=== PATIENT | female | born 1970 | race Caucasian/White ===

== ENCOUNTER 2024-09-22 20:07 | Inpatient (IN) | payer OTHER ==
[2024-09-22 22:17] VITALS: BMI 18.6
[2024-09-22] MEDS ORDERED: chlordiazePOXIDE HCL 25 MG CAPSULE PO PRN (22:27)
[2024-09-22] MEDS ORDERED: LOPERAMIDE HCL 2 MG CAPSULE PO PRN (22:38)
[2024-09-22] MEDS ORDERED: BENZONATATE 200 MG CAPSULE PO PRN (22:38)
[2024-09-22] MEDS ORDERED: BISMUTH SUBSALICYLATE 524 MG/30 ML PO PRN (22:38)
[2024-09-22] MEDS ORDERED: POLYETHYLENE GLYCOL (HEALTHYLAX) 3350 17 GM PACKET PO PRN (22:38)
[2024-09-22] MEDS ORDERED: DICYCLOMINE HCL 10 MG CAPSULE PO PRN (22:38)
[2024-09-22] MEDS ORDERED: IBUPROFEN 400 MG TABLET (FP) PO PRN (22:38)
[2024-09-22] MEDS ORDERED: ACETAMINOPHEN 325 MG TABLET (FP) PO PRN (22:38)
[2024-09-22] MEDS ORDERED: ONDANSETRON *ODT* 4 MG TABLET SL PRN (22:38)
[2024-09-22] MEDS ORDERED: MAGNESIUM HYDROX 2400MG/30ML ORAL SUSPENSION 30 ML CUP PO PRN (22:38)
[2024-09-22] MEDS ORDERED: guaiFENesin 600 MG TABLET.ER (FP) PO PRN (22:38)
[2024-09-22] MEDS ORDERED: MAG HYDROX/AL HYDROX/SIMETH 30 ML UNIT-DOSE CUP PO PRN (22:38)
[2024-09-22] MEDS ORDERED: hydrOXYzine PAMOATE 25 MG CAPSULE (FP) PO PRN (22:38)
[2024-09-22] MEDS ORDERED: BENZOCAINE/MENTHOL (CHLORASEPTIC ) LOZENGE MM PRN (22:38)
[2024-09-22] MEDS ORDERED: NICOTINE POLACRILEX 2 MG GUM BUC PRN (22:40)
[2024-09-22] MEDS ORDERED: chlordiazePOXIDE HCL 25 MG CAPSULE ONE (23:56)
[2024-09-22] MEDS ORDERED: levETIRAcetam 500 MG TABLET (FP) PO ONE (23:56)
[2024-09-22] MEDS: levETIRAcetam 500 MG TABLET (FP) PO SCH (23:57)
[2024-09-22] MEDS: chlordiazePOXIDE HCL 25 MG CAPSULE PO SCH (23:57)
[2024-09-23] MEDS ORDERED: chlordiazePOXIDE HCL 25 MG CAPSULE ONE (04:07)
[2024-09-23] MEDS: PRENATAL VITAMINS W/ FOLIC ACID TABLET (FP) PO SCH (10:37)
[2024-09-23] MEDS: FLU VACCINE (FLULAVAL) PF 45 MCG/0.5 ML SYRINGE 2024-2025 IM ONE (11:31)
[2024-09-23 11:32] LABS: POTASSIUM 4.1 mmol/L (3.5-5.1)
[2024-09-23 11:34] LABS: MCH 34.8 pg (25.7-33.7); MCHC 34.2 g/dl (32.0-36.0); MEAN CELL VOLUME 101.7 fl (80-96); MEAN PLT VOLUME 7.7 fl (7.5-11.1); PLATELET COUNT 185 10^3/uL (134-434); RBC 3.45 M/mm3 (3.60-5.2); RDW 12.4 % (11.6-15.6); WHITE BLOOD COUNT 6.1 K/mm3 (4.0-10.0)
[2024-09-23 11:36] LABS: BLOOD UREA NITROGEN 11.5 mg/dL (7-18)
[2024-09-23 11:38] LABS: CALCIUM 8.7 mg/dL (8.5-10.1)
[2024-09-23 11:39] LABS: ALBUMIN 3.2 g/dl (3.4-5.0)
[2024-09-23 11:40] LABS: CREATININE 0.5 mg/dL (0.55-1.3)
[2024-09-23 11:41] LABS: BILIRUBIN,TOTAL 1.2 mg/dL (0.2-1); TOT PROT 6.5 g/dl (6.4-8.2)
[2024-09-23] MEDS: PNEUMOC 20-VAL CONJ-DIP CRM/PF 0.5 ML SYRINGE IM ONE (11:51)
[2024-09-23] MEDS: IBUPROFEN 600 MG TABLET (FP) PO PRN (17:21)
[2024-09-23] MEDS ORDERED: MELATONIN 5 MG TABLETS PO SCH (22:00)
[2024-09-23] MEDS: SUVOREXANT 5 MG TABLET PO PRN (22:44)
[2024-09-23] MEDS: THIAMINE 100 MG TABLET PO SCH (22:46)
[2024-09-24] MEDS: chlordiazePOXIDE HCL 25 MG CAPSULE PO SCH (05:50)
[2024-09-24] MEDS: CITALOPRAM HYDROBROMIDE 20 MG TABLET PO SCH (10:17)
[2024-09-24] MEDS: LORATADINE 10 MG TABLET PO SCH (10:17)
[2024-09-24] MEDS: METHOCARBAMOL 500 MG TABLET PO PRN (22:26)
[2024-09-25] MEDS ORDERED: chlordiazePOXIDE HCL 10 MG CAPSULE PO PRN
[2024-09-25] MEDS: chlordiazePOXIDE HCL 10 MG CAPSULE PO SCH (06:00)
[2024-09-26] MEDS: chlordiazePOXIDE HCL 10 MG CAPSULE PO SCH (05:58)
[2024-09-27] MEDS: chlordiazePOXIDE HCL 10 MG CAPSULE PO ONE (06:00)
[2024-09-27 08:48] VITALS: BP 99/69; PULSE 62; RESP 16; TEMP 97.7
[2024-09-27] MEDS: NALOXONE (NYS OPIOID OVERDOSE PROGRAM) 4 MG/0.1 ML SPRAY NS SCH (09:00)
== END 2024-09-27 09:45 | disposition home or self-care (01) | DRG 775 ==
LOC: YASAS 20:07 → Y3N 23:36
PROVIDERS: ADMIT Allergy & Immunology; ATTEND Allergy & Immunology
PROC: HZ2ZZZZ Detoxification Services for Substance Abuse Treatment (ICD-10-PCS; principal; 2024-09-22)
DX: F10.230 Alcohol dependence with withdrawal, uncomplicated (principal); F17.210 Nicotine dependence, cigarettes, uncomplicated; F41.8 Other specified anxiety disorders; F32.A Depression, unspecified; G47.00 Insomnia, unspecified
CPT/HCPCS: 36415; 80053; 82140; 85027; 86780; 90656; 90677; 93005; 93010; G0008; G0009